=== PATIENT | female | born 1990 | race Hispanic/Latino ===

== ENCOUNTER 2017-11-10 19:53 | Emergency (ER) | payer MEDICAID, OTHER ==
[2017-11-10] MEDS ORDERED: ACETAMINOPHEN EXTRA STRENGTH 500 MG TABLET ONE (20:12)
[2017-11-10] MEDS ORDERED: AMOXICILLIN/POTASSIUM CLAV 875-125 TABLET PO ONE (20:12)
== END 2017-11-10 20:27 | disposition home or self-care (01) ==
LOC: EDH 19:53
DX: O99.511 Diseases of the respiratory system complicating pregnancy, first trimester (principal); J02.0 Streptococcal pharyngitis; R50.81 Fever presenting with conditions classified elsewhere; Z3A.01 Less than 8 weeks gestation of pregnancy

== ENCOUNTER 2018-02-12 17:31 | Emergency (ER) | payer MEDICAID, OTHER | END 2018-02-12 20:06 | disposition home or self-care (01) | LOC: EDH 17:31 | DX: O26.892 Other specified pregnancy related conditions, second trimester (principal); R10.2 Pelvic and perineal pain; Z3A.20 20 weeks gestation of pregnancy | CPT/HCPCS: 99281 ==

== ENCOUNTER 2018-07-20 08:49 | Emergency (ER) | payer MEDICAID ==
[2018-07-20 09:24] LABS: APPEARANCE,URINE CLOUDY (CLEAR); BILIRUBIN,URINE NEGATIVE (NEGATIVE); COLOR,URINE YELLOW (YELLOW); GLUCOSE, URINE (UA) NEGATIVE (NEGATIVE); KETONES,URINE NEGATIVE (NEGATIVE); LEUKOCYTE ESTERASE ,URINE MODERATE (NEGATIVE); NITRATE,URINE NEGATIVE (NEGATIVE); OCCULT BLOOD,URINE LARGE (NEGATIVE); PROTEIN,URINE 100 (NEGATIVE); UROBILINOGEN,URINE 0.2 mg/dL (0.2-1.0)
[2018-07-20 09:32] LABS: HCG,QUAL RESULT NEGATIVE (NEGATIVE)
[2018-07-20 09:35] LABS: WBC,URINE 26-50 /HPF (0-1)
[2018-07-20 09:36] LABS: BACTERIA,URINE Moderate /HPF (None Seen); MUCUS,URINE Few LPF (None Seen); SQUAMOUS EPITHELIAL CELL,UR Many /HPF (0-2)
[2018-07-20] MEDS ORDERED: LIDOCAINE HCL-MPF 1% 2ML VIAL ONE (09:44)
[2018-07-20] MEDS ORDERED: CEFTRIAXONE SODIUM 1 GM ONE (09:44)
[2018-07-20] MEDS ORDERED: PHENAZOPYRIDINE HCL 200 MG TABLET ONE (09:44)
== END 2018-07-20 10:10 | disposition home or self-care (01) ==
LOC: EDH 08:49
DX: N39.0 Urinary tract infection, site not specified (principal); R30.0 Dysuria
CPT/HCPCS: 81001; 81025; 87088; 96372; 99284; J0696; J3490

== ENCOUNTER 2018-12-10 08:16 | Emergency (ER) | payer MEDICAID, OTHER ==
[2018-12-10 09:03] LABS: APPEARANCE,URINE Clear (CLEAR); BILIRUBIN,URINE Negative (NEGATIVE); COLOR,URINE Yellow (YELLOW); GLUCOSE, URINE (UA) Negative (NEGATIVE); KETONES,URINE Negative (NEGATIVE); LEUKOCYTE ESTERASE ,URINE Moderate (NEGATIVE); NITRATE,URINE Negative (NEGATIVE); OCCULT BLOOD,URINE Moderate (NEGATIVE); PH,URINE 5.5 (5.0-8.0); PROTEIN,URINE Negative (NEGATIVE); UROBILINOGEN,URINE 0.2 mg/dL (0.2-1.0)
[2018-12-10 09:05] LABS: HCG,QUAL RESULT NEGATIVE (NEGATIVE)
[2018-12-10 09:27] LABS: BACTERIA,URINE Rare /HPF (None Seen); MUCUS,URINE Moderate LPF (None Seen); SQUAMOUS EPITHELIAL CELL,UR Few /HPF (0-2); WBC,URINE 26-50 /HPF (0-1)
== END 2018-12-10 09:47 | disposition home or self-care (01) ==
LOC: EDH 08:16
DX: N30.90 Cystitis, unspecified without hematuria (principal)
CPT/HCPCS: 81001; 81025

== ENCOUNTER 2019-06-17 19:20 | Emergency (ER) | payer OTHER ==
[2019-06-17 19:50] LABS: APPEARANCE,URINE CLOUDY (CLEAR); BILIRUBIN,URINE NEGATIVE (NEGATIVE); COLOR,URINE YELLOW (YELLOW); GLUCOSE, URINE (UA) NEGATIVE (NEGATIVE); KETONES,URINE NEGATIVE (NEGATIVE); LEUKOCYTE ESTERASE ,URINE NEGATIVE (NEGATIVE); NITRATE,URINE POSITIVE (NEGATIVE); OCCULT BLOOD,URINE NEGATIVE (NEGATIVE); PROTEIN,URINE NEGATIVE (NEGATIVE); UROBILINOGEN,URINE 0.2 mg/dL (0.2-1.0)
[2019-06-17 19:58] LABS: HCG,QUAL RESULT NEGATIVE (NEGATIVE)
[2019-06-17 20:01] LABS: BACTERIA,URINE Moderate /HPF (None Seen); SQUAMOUS EPITHELIAL CELL,UR Moderate /HPF (0-2)
== END 2019-06-17 20:28 | disposition home or self-care (01) ==
LOC: EDH 19:20
DX: N39.0 Urinary tract infection, site not specified (principal)
CPT/HCPCS: 81001; 81025

== ENCOUNTER 2019-08-11 23:06 | Emergency (ER) | payer OTHER ==
[2019-08-11] MEDS ORDERED: KETOROLAC TROMETHAMINE 60 MG/2 ML VIAL ONE ×2 (23:31→23:56)
[2019-08-11] MEDS ORDERED: LIDOCAINE 5% TOPICAL PATCH TP ONE (23:31)
== END 2019-08-12 00:08 | disposition home or self-care (01) ==
LOC: EDH 23:06
DX: R07.89 Other chest pain (principal); R06.02 Shortness of breath; R05 Cough
CPT/HCPCS: 71046; 93005; 96372; 99284; J1885 ×2

== ENCOUNTER 2020-03-18 13:37 | Emergency (ER) | payer MEDICAID, OTHER ==
[2020-03-18 14:04] LABS: BASOPHILS % (AUTO) 0.6 % (0.0-5.0); HEMATOCRIT 35.7 % (36-48); LYMPHOCYTES % (AUTO) 23.8 % (21.0-51.0); MEAN CORPUSCULAR HEMOGLOBIN 30.3 pg (27.0-33.0); MEAN CORPUSCULAR HGB CONC 33.9 g/dL (32.0-36.0); MEAN CORPUSCULAR VOLUME 89.3 fL (79-99); NEUTROPHILS % (AUTO) 67.3 % (40.0-77.0); PLATELET COUNT (AUTO) 283 K/uL (130-400); RED CELL DISTRIBUTION WIDTH 13.4 % (11.0-15.5); WHITE BLOOD COUNT (AUTO) 6.7 K/uL (4.8-10.8)
== END 2020-03-18 17:27 | disposition left against medical advice (07) ==
LOC: EDH 13:37
DX: N93.9 Abnormal uterine and vaginal bleeding, unspecified (principal); R10.9 Unspecified abdominal pain
CPT/HCPCS: 36415; 76801; 84702; 85025; 86900; 86901

== ENCOUNTER 2020-05-07 11:19 | Day surgery (SDC) | payer MEDICAID ==
[2020-04-28 10:24] LABS: BASOPHILS % (AUTO) 0.7 % (0.0-5.0); EOSINOPHILS % (AUTO) 0.5 % (0.0-8.0); HEMATOCRIT 34.6 % (36-48); LYMPHOCYTES % (AUTO) 19.1 % (21.0-51.0); MEAN CORPUSCULAR HEMOGLOBIN 28.5 pg (27.0-33.0); MEAN CORPUSCULAR HGB CONC 32.1 g/dL (32.0-36.0); MEAN CORPUSCULAR VOLUME 88.7 fL (79-99); MONOCYTES % (AUTO) 6.1 % (3.0-13.0); NEUTROPHILS % (AUTO) 73.2 % (40.0-77.0); PLATELET COUNT (AUTO) 378 K/uL (130-400); RED CELL DISTRIBUTION WIDTH 13.1 % (11.0-15.5); WHITE BLOOD COUNT (AUTO) 7.7 K/uL (4.8-10.8)
--- NOTE | 2020-04-29 09:20 | NUR ---
covid positive patient covid test positive. called dr nogueira office and reported to aggie collado. aware had already been notified. pt aware too.
--- NOTE | 2020-05-05 09:05 | NUR ---
preg test called dr nogueira office and reported to david positive preg test. results faxed over
[2020-05-05 15:01] VITALS: BP 104/69
--- NOTE | 2020-05-06 10:40 | NUR ---
report received hcg from dr nogueira office. dr machuca made aware of results and will proceed as planned.
[~2020-05-07] VITALS: Ht 162.6 cm; Wt 66.4 kg
[2020-05-07] VITALS (17 sets, daily range): BP systolic 94–125; BP diastolic 61–76
[~2020-05-07 11:19] MED LIST: LACTATED RINGERS 1000ML 1,000 ML IV SCH
[2020-05-07] MEDS ORDERED: STRONG IODINE SOLN 14ML BOTTLE ONE (11:20)
--- NOTE | 2020-05-07 11:30 | NUR ---
PREOP PT ARRIVED AMBULATORY IN NO DISTRESS. PT HERE FOR SURGERY. PT ORIENTED TO CALL LIGHT AND ROOM. WILL CONTINUE TO MONITOR PT.
[2020-05-07] MEDS ORDERED: LACTATED RINGERS 1000ML 1,000 ML IV ONE (11:40)
[2020-05-07] MEDS ORDERED: VASOPRESSIN 20 UNITS/ML 1ML VIAL ONE (12:15)
[2020-05-07] MEDS ORDERED: SILVER NITRATE APPLICATOR 1 SWAB TP ONE (12:24)
[2020-05-07] MEDS ORDERED: LIDOCAINE PF 2% 5ML ABBOJECT ONE (12:29)
[2020-05-07] MEDS ORDERED: DEXAMETHASONE SOD PHOSPHATE 10MG/ML 1ML VIAL ONE (12:29)
[2020-05-07] MEDS ORDERED: SUCCINYLCHOLINE 200MG/10ML SYR ONE (12:29)
[2020-05-07] MEDS ORDERED: MIDAZOLAM HCL 1 MG/ML 2ML VIAL ONE (12:30)
[2020-05-07] MEDS ORDERED: FENTANYL CITRATE PF 50 MCG/1 ML 2ML VIAL ONE ×2 (12:30→13:54)
[2020-05-07] MEDS ORDERED: NEOSTIGMINE 5MG/5ML SYR IV ONE (12:30)
[2020-05-07] MEDS ORDERED: GLYCOPYRROLATE 1 MG/5 ML SYRINGE ONE (12:30)
[2020-05-07] MEDS ORDERED: PROPOFOL 10 MG/ML 20ML VIAL IV ONE (12:30)
[2020-05-07] MEDS ORDERED: ROCURONIUM 10MG/1ML SYR 10 MG/ML ML ONE (12:30)
[2020-05-07] MEDS ORDERED: ONDANSETRON HCL 4 MG/2 ML VIAL ONE (12:30)
[2020-05-07] MEDS ORDERED: EPHEDRINE SULFATE 50 MG/ML AMPULE ONE (13:26)
[2020-05-07] MEDS ORDERED: KETOROLAC TROMETHAMINE 30MG/ML ONE ×2 (13:53→14:31)
[2020-05-07] MEDS ORDERED: MEPERIDINE-PF 25 MG/ML SYG ONE (14:44)
--- NOTE | 2020-05-07 15:15 | NUR ---
PATIENT ARRIVED TO DAY PATIENT VIA STRETCHER BY NURSE (JOSE WILLIAM) PATIENT [id number], RESPIRATIONS UNLABORED, VITAL SIGNS STABLE. PER PAD DRY/INTACT. PATIENT C/O OF DISCOMFORT/CRAMPING TO ABDOMEN. WILL CONTINUE TO MONITOR.
--- NOTE | 2020-05-07 15:50 | NUR ---
PATIENT DISCHARGED FROM FACILITY VIA WHEELCHAIR BY NURSE AND ASSISTED INTO PRIVATE VEHICLE DRIVEN BY FAMILY.
== END 2020-05-07 15:50 | disposition home or self-care (01) ==
LOC: DAH 11:19
PROVIDERS: ATTEND Specialist
DX: Z30.2 Encounter for sterilization (principal); R87.611 Atypical squamous cells cannot exclude high grade squamous intraepithelial lesion on cytologic smear of cervix (ASC-H); Z98.82 Breast implant status; Z20.828 Contact with and (suspected) exposure to other viral communicable diseases
CPT/HCPCS: 36415 ×2; 57520; 58671; 84703; 85025; 86850 ×2; 86900 ×2; 86901 ×2; A4215 ×2; A4221; A4222; A4223; A4264; A4351; A4649; A4663; A6260; C1769 ×3; C9803 ×2; J0330; J1100; J1885 ×2; J2001; J2175; J2250; J2405; J2704; J2710; J3010 ×2; J3490 ×3; J7120 ×2; U0003 ×2